=== PATIENT | female | born 1975 | race Caucasian/White ===

== ENCOUNTER → 2019-08-18 | Outpatient (CLI) | payer MEDICARE, MEDICAID, SELFPAY | PROVIDERS: Visit Provider Psychiatry & Neurology Psychiatry | DX: F33.42 Major depressive disorder, recurrent, in full remission (principal); F17.200 Nicotine dependence, unspecified, uncomplicated; F70 Mild intellectual disabilities; F60.3 Borderline personality disorder ==

== ENCOUNTER → 2019-09-04 11:03 | Outpatient (BNVA) | payer MEDICARE, MEDICAID, SELFPAY | PROVIDERS: Visit Provider Otolaryngology | DX: H92.02 Otalgia, left ear (principal); H93.90 Unspecified disorder of ear, unspecified ear; H69.80 Other specified disorders of Eustachian tube, unspecified ear; J32.9 Chronic sinusitis, unspecified; J34.2 Deviated nasal septum; J34.3 Hypertrophy of nasal turbinates; J30.9 Allergic rhinitis, unspecified; F17.210 Nicotine dependence, cigarettes, uncomplicated | CPT/HCPCS: 99213; 99214 ==

== ENCOUNTER 2019-09-16 14:45 | Outpatient (CLI) | payer MEDICARE, MEDICAID, SELFPAY ==
--- NOTE | 2019-09-16 15:00 | CT_ITS ---
WS: [id number] CT TEMPORAL BONES TECHNIQUE: Noncontrast CT of the temporal bones with coronal and sagittal reformatted images. CLINICAL INFORMATION: otalgia COMPARISON: None. DLP: 625.[address] scans at [facility] use at least one of these dose optimization techniques: automat ed exposure control; mA and/or kV adjustment per patient size (includes targeted exams where dose is matched to clinical indication); or iterative reconstruction. FINDINGS: RIGHT: Mucosal thickening mastoid tip. Mastoid air cells are otherwise well aerated. Normal claims auditor y canal. Ossicles are normal in appearance. Middle ear is well aerated. 3.5 mm focus of soft tissue t hickening along the right epitympanum likely inflammatory. No bony erosion. Normal tegmen tympani. Se micircular canals and cochlea are normal in appearance. Prussak's space is normal. Normal inner ear s tructures. Normal vestibular aqueduct. Facial nerve recess is normal. LEFT: Partial opacification left mastoid tip.. Normal external auditory canal. Ossicles are normal in appea katey. Middle ear is well aerated. Normal tegmen tympani. Semicircular canals and cochlea are normal in appearance. Prussak's space is normal. Normal inner ear structures. Normal vestibular aqueduct. Fa cial nerve recess is normal. Left sphenoid sinusitis. CT/CT temporal bone wo con* [id number] IMPRESSION: 1. Ossicles and scutum are normal bilaterally. 2. Small focus of soft tissue thickening along the right epitympanum measuring 3.5 mm likely due to chronic inflammation or granulation tissue. No bony erosi on. Middle ear is otherwise well aerated. 3. Inner ear structures are well aerated bilaterally. 4. Partial opacification of the mastoid tips. 5. Left sphenoid sinusitis.
--- NOTE | 2019-09-16 15:30 | CT_ITS ---
WS: [id number] CT SINUSES TECHNIQUE: Noncontrast CT of the paranasal sinuses with coronal and sagittal reformatted images. CLINICAL INFORMATION: chronic sinusitis COMPARISON: None. DLP: 354.[address] scans at [facility] use at least one of these dose optimization techniques: automat ed exposure control; mA and/or kV adjustment per patient size (includes targeted exams where dose is matched to clinical indication); or iterative reconstruction. FINDINGS: Mild left to right nasal septal deviation measuring 2 mm. Mild mucosal thickening in the maxillary si nuses measuring 3.6 mm in the left and 2.7 mm in the right. Narrowing of the ostiomeatal units bilate rally with mucosal thickening Frontal sinuses are well aerated. Thin septation left frontal sinus. Partial opacification left great er than right frontal ethmoidal recesses with fluid. Mild ethmoid sinusitis worse in the left. Air-fl uid level within the left sphenoid sinus consistent with sinusitis. Right sphenoid locule is well aer ated. Mucosal thickening with mild narrowing along the sphenoid ostia. Partial opacification mastoid tips. CT/CT sinus wo con* [id number] IMPRESSION: 1. Mild left to right nasal septal deviation measuring 2mm 2. Mild mucosal thickening in the maxillary sinuses measuring 2-3 mm worse in the left. 3. Mild ethmoid sinusitis worse on the left. Air-fluid level within the left s phenoid sinus consistent with sinusitis. 4. Partial opacification along the left greater than right frontal ethmoidal r ecesses with fluid. 5. Mucosal thickening with narrowing of the ostiomeatal units bilaterally. 6. Partial opacification mastoid tips bilaterally.
== END 2019-09-16 14:46 | disposition home or self-care (01) ==
LOC: RADWPI 14:49
PROVIDERS: PCP Nurse Practitioner Family; Visit Provider Otolaryngology
DX: J32.8 Other chronic sinusitis (principal); H93.90 Unspecified disorder of ear, unspecified ear; H69.80 Other specified disorders of Eustachian tube, unspecified ear; H92.09 Otalgia, unspecified ear
CPT/HCPCS: 70480; 70486

== ENCOUNTER → 2019-10-01 14:53 | Outpatient (BNVA) | payer MEDICARE, MEDICAID, SELFPAY | PROVIDERS: PCP Nurse Practitioner Family; Visit Provider Otolaryngology | DX: H93.90 Unspecified disorder of ear, unspecified ear (principal); H69.80 Other specified disorders of Eustachian tube, unspecified ear; H92.02 Otalgia, left ear; J30.9 Allergic rhinitis, unspecified; J34.3 Hypertrophy of nasal turbinates; J34.2 Deviated nasal septum; J32.9 Chronic sinusitis, unspecified; F17.210 Nicotine dependence, cigarettes, uncomplicated | CPT/HCPCS: 99213; 99214 ==

== ENCOUNTER → 2019-10-19 12:40 | Outpatient (BNVA) | payer MEDICARE, MEDICAID, SELFPAY | PROVIDERS: PCP Nurse Practitioner Family; Visit Provider Otolaryngology | DX: J32.9 Chronic sinusitis, unspecified (principal); H93.90 Unspecified disorder of ear, unspecified ear; H92.03 Otalgia, bilateral; J30.9 Allergic rhinitis, unspecified; H69.80 Other specified disorders of Eustachian tube, unspecified ear; J34.3 Hypertrophy of nasal turbinates; J34.2 Deviated nasal septum; F17.210 Nicotine dependence, cigarettes, uncomplicated | CPT/HCPCS: 96372; 99214; J3301 ==

== ENCOUNTER → 2019-11-03 10:20 | Outpatient (BNVA) | payer MEDICARE, MEDICAID, SELFPAY | PROVIDERS: PCP Nurse Practitioner Family; Visit Provider Psychiatry & Neurology Psychiatry | DX: F33.40 Major depressive disorder, recurrent, in remission, unspecified (principal); F70 Mild intellectual disabilities; F60.3 Borderline personality disorder; F17.210 Nicotine dependence, cigarettes, uncomplicated; G25.81 Restless legs syndrome | CPT/HCPCS: 99214 ==

== ENCOUNTER → 2020-02-17 07:28 | Outpatient (BNVA) | payer MEDICARE, MEDICAID, SELFPAY | PROVIDERS: PCP Nurse Practitioner Family; Visit Provider Psychiatry & Neurology Psychiatry | DX: F33.40 Major depressive disorder, recurrent, in remission, unspecified (principal); F60.3 Borderline personality disorder; F70 Mild intellectual disabilities; F17.210 Nicotine dependence, cigarettes, uncomplicated; G25.81 Restless legs syndrome; F41.1 Generalized anxiety disorder; F43.12 Post-traumatic stress disorder, chronic | CPT/HCPCS: 99213 ==

== ENCOUNTER → 2020-04-20 09:31 | Outpatient (BNVA) | payer MEDICARE, MEDICAID, SELFPAY | PROVIDERS: PCP Nurse Practitioner Family; Visit Provider Psychiatry & Neurology Psychiatry | DX: F33.40 Major depressive disorder, recurrent, in remission, unspecified (principal); F60.3 Borderline personality disorder; F70 Mild intellectual disabilities; F17.210 Nicotine dependence, cigarettes, uncomplicated; G25.81 Restless legs syndrome | CPT/HCPCS: 99213 ==

== ENCOUNTER → 2020-07-19 07:46 | Outpatient (BNVA) | payer MEDICARE, MEDICAID, SELFPAY | PROVIDERS: PCP Nurse Practitioner Family; Visit Provider Psychiatry & Neurology Psychiatry | DX: F33.40 Major depressive disorder, recurrent, in remission, unspecified (principal); F70 Mild intellectual disabilities; F60.3 Borderline personality disorder; F17.210 Nicotine dependence, cigarettes, uncomplicated; G25.81 Restless legs syndrome | CPT/HCPCS: 99214 ==

== ENCOUNTER → 2020-10-14 09:00 | Outpatient (BNVA) | payer MEDICARE, MEDICAID, SELFPAY | PROVIDERS: PCP Nurse Practitioner Family; Visit Provider Psychiatry & Neurology Psychiatry | DX: F33.40 Major depressive disorder, recurrent, in remission, unspecified (principal); F60.3 Borderline personality disorder; F70 Mild intellectual disabilities; G25.81 Restless legs syndrome; F17.210 Nicotine dependence, cigarettes, uncomplicated | CPT/HCPCS: 99213 ==

== ENCOUNTER 2021-02-16 10:29 | Outpatient (CLI) | payer MEDICARE, MEDICAID, SELFPAY ==
--- NOTE | 2021-02-16 10:37 | US_ITS ---
WS: [id number] ULTRASOUND PELVIS TECHNIQUE: Transabdominal and transvaginal. ULTRASOUND PELVIS TECHNIQUE: Transabdominal. CLINICAL INFORMATION: IRREGULAR MENES/MENORRHEA-PREMENOPAUSAL LMP: February 02, 2021 : No. COMPARISON: None. FINDINGS: Uterus Orientation: Anteverted. Size: 7.6 cm x 4.1 cm x 4.1 cm. Masses: None. Cervix: Normal Endometrium: Normal. Endometrium thickness: 0.6 cm. Adnexa: Heterogeneous right ovarian lesion with peripheral vascularity likely corpus luteum or hemorr hagic cyst measuring 1.7 x 1.3 x 1.4 cm. Right ovary size: 2.7 cm x 1.7 cm x 2.0 cm. Right ovary volume: 4.8 ccm3. Left ovary size: 3.0 cm x 1.4 cm x 2.2 cm. Left ovary volume: 4.7 ccm3 Free fluid: None. Other findings: None. US/US pelvic with transvaginal IMPRESSION: 1. Normal uterus and endometrium. Endometrium measures 6.3 mm. 2. Normal adnexa. 3. Heterogeneous right ovarian lesion with peripheral vascularity likely corpu s luteum or hemorrhagic cyst measuring 1.7 x 1.3 x 1.4 cm. This can be followed up in one to 2 menstrual cycles. 4. No free fluid in the cul-de-sac.
== END 2021-02-16 10:30 | disposition home or self-care (01) ==
LOC: RAD 10:32
PROVIDERS: PCP Nurse Practitioner Family; Visit Provider Nurse Practitioner Family
DX: F33.40 Major depressive disorder, recurrent, in remission, unspecified (principal); F60.3 Borderline personality disorder; F70 Mild intellectual disabilities; F17.210 Nicotine dependence, cigarettes, uncomplicated; G25.81 Restless legs syndrome
CPT/HCPCS: 76830; 76856; 99214

== ENCOUNTER 2021-03-01 11:27 | Outpatient (CLI) | payer MEDICARE, MEDICAID, SELFPAY ==
--- NOTE | 2021-03-01 11:33 | MM_ITS ---
WS: [id number] BILATERAL DIGITAL SCREENING MAMMOGRAPHY WITH CAD CLINICAL INFORMATION: SCREENING HISTORY: Screening mammogram. No current complaints. COMPARISON: [id number] TECHNIQUE: Bilateral CC and MLO views. FINDINGS: The breasts are composed of heterogeneous fibroglandular density tissue, which can limit the detectio n of small underlying mass lesions. No suspicious mass, asymmetry, calcifications, or architectural d istortion. No evidence of malignancy. Stable intramammary lymph node left axillary tail MM/[place] [id number] IMPRESSION: BI-RADS: 2-Benign FOLLOW UP: 1 Year Follow-up Recommend return to annual screening mammography.
== END 2021-03-01 11:28 | disposition home or self-care (01) ==
LOC: RADSHAW 11:32
PROVIDERS: PCP Nurse Practitioner Family; Visit Provider Nurse Practitioner Family
DX: Z12.31 Encounter for screening mammogram for malignant neoplasm of breast (principal)
CPT/HCPCS: 77067

== ENCOUNTER 2021-05-30 14:59 | Outpatient (CLI) | payer MEDICARE, MEDICAID, SELFPAY ==
--- NOTE | 2021-05-30 15:05 | US_ITS ---
WS: [id number] TRANSABDOMINAL PELVIC AND TRANSVAGINAL PELVIC ULTRASOUND HISTORY: R SIDE OVARIAN CYST COMPARISON: 02/16/2021 Uterus: 7.5 cm x 4.7 cm x 3.9 cm. Normal size anteverted uterus. No fibroid or mass. Endometrium: 0.8 cm. Normal trilaminar endometrium. Right ovary: 2.0 cm x 2.3 cm x 1.4 cm. Normal size and echogenicity. No mass. Normal vascularity. No RIGHT ovarian cyst. Left ovary: 2.7 cm x 2.2 cm x 1.8 cm. Normal size and echogenicity. No mass. Normal vascularity. Small amount of physiologic free fluid in the cul-de-sac. US/US pelvic with transvaginal IMPRESSION: Normal pelvic ultrasound. No ovarian cysts.
== END 2021-05-30 15:00 | disposition home or self-care (01) ==
LOC: RAD 15:03
PROVIDERS: PCP Nurse Practitioner Family; Visit Provider Nurse Practitioner Family
DX: N83.291 Other ovarian cyst, right side (principal)
CPT/HCPCS: 76830; 76856

== ENCOUNTER → 2021-06-05 11:12 | Outpatient (BNVA) | payer MEDICARE, MEDICAID, SELFPAY | PROVIDERS: PCP Nurse Practitioner Family; Visit Provider Psychiatry & Neurology Psychiatry | DX: F33.40 Major depressive disorder, recurrent, in remission, unspecified (principal); F60.3 Borderline personality disorder; F70 Mild intellectual disabilities; G25.81 Restless legs syndrome; F17.210 Nicotine dependence, cigarettes, uncomplicated | CPT/HCPCS: 99214 ==

== ENCOUNTER 2021-08-29 12:04 | Emergency (ER) | payer MEDICARE, MEDICAID, SELFPAY ==
--- NOTE | 2021-08-29 12:16 | XRR_ITS ---
PROCEDURE INFORMATION: Exam: XR Chest Exam date and time: 08/29/2021 12:16 PM Age: 46 years old Clinical indication: Patient HX: Coughing x 2 weeks; Additional info: Cough, fevers TECHNIQUE: Imaging protocol: XR of the chest. Views: 1 view. COMPARISON: CR Chest 1 [place] [id number] 02/10/2015 4:28 PM FINDINGS: Lungs: Unremarkable. No consolidation. Pleural spaces: Unremarkable. No pleural effusion. No pneumothorax. Heart/Mediastinum: Unremarkable. No cardiomegaly. Bones/joints: No acute findings. XR/XR chest 1V portable [id number] IMPRESSION: No acute findings.
[2021-08-29 12:36] VITALS: BP 122/87; PULSE 85; RESP 13; TEMP 37.8; O2SAT 97; BMI 25.0
--- NOTE | 2021-08-29 15:57 | W.ED.URI ---
HPI - URI/Sore Throat General: Chief Complaint: General Medical Stated Complaint: cough, congestion, fever off and on Time Seen by Provider: 08/29/21 15:56 Source: patient Mode of arrival: ambulatory Limitations: no limitations History of Present Illness: HPI Narrative: Patient is a 46-year-old female presents to ED today with a complaint of nasal congestion, runny nose, cough, chest congestion, and intermittent low-grade fevers. She states her mother is sick with similar symptoms. Patient tells me she believes she has walking pneumonia . She is not having any chest pain or shortness of breath. MD elicited complaint: fever, cough, rhinorrhea and nasal congestion Onset (ago): day(s) (5) Consistency: constant Severity: mild Description of mucous: clear Able to tolerate fluids by mouth: Yes Exacerbating factors: nothing Relieving factors: nothing Context: sick contacts (mother) Associated symptoms: Reports fever(s) and nasal congestion; Deny abdominal pain, chills, chest pain, diarrhea, headache(s), nausea or vomiting Treatments prior to arrival: none Review of Systems Const: Reports: fever(s); Denies: chills, body aches, fatigue or malaise Eyes: Denies: change in vision or blurry vision ENMT: Reports: nasal discharge and nasal congestion; Denies: throat pain or odynophagia Card: Denies: chest pain, palpitations, irregular heart rhythm, edema, lightheadedness, syncope or pre-syncope Resp: Reports: productive cough and chest congestion; Denies: dyspnea, wheezing or hemoptysis GI: Denies: abdominal pain, nausea, vomiting or diarrhea Musc: Denies: neck pain or back pain Skin/Breast: Denies: rash Neuro: Denies: headache(s) PFS ED PFSH: Medical History (Updated 08/29/21 @ 16:05 by LAVELLE Bang) Borderline personality disorder Cigarette smoker Major depressive disorder, recurrent, in remission Mild intellectual disability Otalgia of both ears Psychiatric care Restless leg syndrome Family History Father CAD (coronary artery disease) Stroke Diabetes Denies family history of Anesthesia complication Bleeding disorder Social History Smoking and tobacco status: current every day smoker cigarettes Packs smoked per day: 0.5 Years cigarettes smoked: 30 Alcohol intake: never Physical Exam Const: COMMON NORMALS: no acute distress, average body habitus, patient oriented x3, no limitations, healthy appearing, alert and well nourished GENERAL APPEARANCE: other (slightly agitated-apparently refused COVID testing from RN) ORIENTATION/CONSCIOUSNESS: Yes awake, Yes oriented to person, Yes oriented to place and Yes oriented to time HENMT: COMMON NORMALS: normocephalic and atraumatic HEAD & SCALP: normocephalic and atraumatic Resp: COMMON NORMALS: normal respiratory effort and clear to auscultation bilaterally AUSCULTATION: clear to auscultation bilaterally Cardio: COMMON NORMALS: regular rate and regular rhythm RATE: regular rate RHYTHM: regular rhythm Extremity: COMMON NORMALS: normal to inspection Neuro: COMMON NORMALS: patient oriented x3 SENSORIUM/ORIENTATION: Yes alert, Yes oriented to person, Yes oriented to place and Yes oriented to time Skin: COMMON NORMALS: no rashes or lesions noted GENERAL SKIN EXAM: no rashes or lesions noted Course Vital Signs: Vital signs: Vital Signs Temperature 100.1 F H 08/29/21 12:36 Pulse Rate 85 08/29/21 12:36 Respiratory Rate 13 08/29/21 12:36 Blood Pressure 122/87 08/29/21 12:36 Pulse Oximetry 97 08/29/21 12:36 MDM - URI/Sore Throat MDM Narrative: Medical decision making narrative: Patient appears in no acute distress. Her vital signs are normal. She did arrive with a low-grade fever however. CXR is normal. Patient adamantly refusing COVID testing stating I know this isn't COVID . She states her mother has similar symptoms. Requesting antibiotics. I told patient at this time symptoms are most likely secondary to viral illness and certainly could be COVID. Strongly recommended she get testing for this however I cannot force her to do so. She tells me that she has a caregiver and will be around others. Again I stressed the importance of knowing whether this is COVID or not so she can quarantine however patient refuses. I think there may be some baseline cognitive disability. Told her viral infections are treated conservatively and there is no need for antibiotics or other prescription medications at this time especially since she appears in no acute distress. Imaging Data^: CXR: Radiologist's impression: [address] [address] XRay Report Signed Patient: Nathalie Majano Unit #: [id number] : 1975 Age/Sex: 46 / F ADM Date: 08/29/21 Loc: ER Room/Bed: Attending Dr: Ordering Provider/Ordering MD: Dionne Wilder Date of Service: 08/29/21 Procedure(s): XR chest 1V portable [id number] Accession Number(s): [id number] Report Number: [id number] PROCEDURE INFORMATION: Exam: XR Chest Exam date and time: 08/29/2021 12:16 PM Age: 46 years old Clinical indication: Patient HX: Coughing x 2 weeks; Additional info: Cough, fevers TECHNIQUE: Imaging protocol: XR of the chest. Views: 1 view. COMPARISON: CR Chest 1 [place] [id number] 02/10/2015 4:28 PM FINDINGS: Lungs: Unremarkable. No consolidation. Pleural spaces: Unremarkable. No pleural effusion. No pneumothorax. Heart/Mediastinum: Unremarkable. No cardiomegaly. Bones/joints: No acute findings. XR/XR chest 1V portable [id number] IMPRESSION: No acute findings. Dictated By: Amaury Elder MD Signed By: Amaury Elder MD Signed Date/Time: 08/29/21 1318 DD/ 1216 Discharge Plan Discharge Patient Disposition: Home Clinical Impression: Viral upper respiratory tract infection with cough Condition: Stable Prescriptions: No Action topiramate [Topamax] 25 mg tablet 25 mg PO DAILY RF: 0 naproxen 250 mg tablet 250 mg PO BID PRNRF: 0 albuterol sulfate 90 mcg/actuation HFA aerosol inhaler 1 inh inhalation QID RF: 0 montelukast 10 mg tablet 10 mg PO DAILY RF: 0 citalopram [Celexa] 40 mg tablet 40 mg PO DAILY Qty: 90 RF: 1 hydroxyzine HCl 50 mg tablet 50 mg PO DAILY PRN (Reason: anxiety) Qty: 30 RF: 2 ropinirole 0.25 mg tablet 0.5 mg PO BID Qty: 120 RF: 2 Discharge Orders: Discharge ED (Routine); Ordered 08/29/21 Ordered By: Dionen Wilder Referrals: Dang Raygoza FNP [Primary Care Provider] - Patient Instructions: Upper Respiratory Infection (ED) Coding Level of Care Code ED Director Of Corporate Real Estate for Suzi Artis
[2021-08-29 16:06] VITALS: BP 129/85; PULSE 87; RESP 18; TEMP 36.6; O2SAT 96
== END 2021-08-29 16:18 | disposition home or self-care (01) ==
PROVIDERS: Emergency Provider Physician Assistant; PCP Nurse Practitioner Family
DX: J06.9 Acute upper respiratory infection, unspecified (principal); F17.210 Nicotine dependence, cigarettes, uncomplicated
CPT/HCPCS: 71045; 96372; 99283; J2930

== ENCOUNTER → 2021-09-06 14:42 | Outpatient (BNVA) | payer MEDICARE, MEDICAID, SELFPAY | PROVIDERS: PCP Nurse Practitioner Family; Visit Provider Psychiatry & Neurology Psychiatry | DX: F33.40 Major depressive disorder, recurrent, in remission, unspecified (principal); F60.3 Borderline personality disorder; F70 Mild intellectual disabilities; G25.81 Restless legs syndrome; F17.210 Nicotine dependence, cigarettes, uncomplicated | CPT/HCPCS: 99214 ==

== ENCOUNTER → 2021-10-20 14:45 | Outpatient (BNVA) | payer MEDICARE, MEDICAID, SELFPAY | PROVIDERS: PCP Nurse Practitioner Family; Visit Provider Psychiatry & Neurology Psychiatry | DX: F33.40 Major depressive disorder, recurrent, in remission, unspecified (principal); F60.3 Borderline personality disorder; F70 Mild intellectual disabilities; G25.81 Restless legs syndrome; F17.210 Nicotine dependence, cigarettes, uncomplicated | CPT/HCPCS: 99213 ==

== ENCOUNTER → 2022-01-10 12:56 | Outpatient (BNVA) | payer MEDICARE, MEDICAID, SELFPAY | PROVIDERS: PCP Nurse Practitioner Family; Visit Provider Psychiatry & Neurology Psychiatry | DX: F33.40 Major depressive disorder, recurrent, in remission, unspecified (principal); F60.3 Borderline personality disorder; F70 Mild intellectual disabilities; G25.81 Restless legs syndrome | CPT/HCPCS: 99213 ==

== ENCOUNTER 2022-01-26 13:39 | Emergency (ER) | payer MEDICARE, MEDICAID, SELFPAY ==
[2022-01-26 14:06] VITALS: BP 146/91; PULSE 100; RESP 15; TEMP 37.2; O2SAT 98; BMI 23.7
--- NOTE | 2022-01-26 14:18 | W.ED.EAR ---
HPI - Ear Problem General: Chief complaint: Ear Stated complaint: Cotton balls in ear can not hear Time Seen by Provider: 01/26/22 14:06 History of Present Illness: Patient is a 47-year-old female comes to the ED with bilateral ear complaint. Ears feel congested and she feels like she has some pressure in mild pain in her ears. She is having trouble hearing due to the symptoms. Denies any drainage of ears. She endorses having seasonal allergies and has been having a lot of nasal and sinus congestion and drainage. Denies any fevers. Associated symptoms: Reports ear or mastoid pain (Bilateral ears); Denies fever(s), headache(s) or neck pain Review of Systems Const: Denies: fever(s), chills or fatigue Eyes: Denies: change in vision or eye discomfort ENMT: Reports: ear or mastoid pain (Bilateral ears) and change in hearing (Bilateral ears); Denies: throat pain, odynophagia, nasal discharge or nasal congestion Card: Denies: chest pain, palpitations, edema, swelling of feet/ankles, dyspnea on exertion or orthopnea Resp: Denies: dyspnea, productive cough or non-productive cough GI: Denies: abdominal pain, nausea, vomiting, diarrhea, constipation or hematochezia : Denies: flank pain, dysuria or hematuria Musc: Denies: neck pain, back pain or extremity swelling Skin/Breast: Denies: rash or new lesions Neuro: Denies: headache(s), numbness in extremities or weakness in extremities PFSH ED PFSH: Medical History Borderline personality disorder Cigarette smoker Major depressive disorder, recurrent, in remission Mild intellectual disability Otalgia of both ears Psychiatric care Restless leg syndrome Family History Father CAD (coronary artery disease) Stroke Diabetes Denies family history of Anesthesia complication Bleeding disorder Social History Smoking and tobacco status: current every day smoker cigarettes Packs smoked per day: 0.5 Years cigarettes smoked: 30 Alcohol intake: never Physical Exam Const: COMMON NORMALS: patient oriented x3 and alert GENERAL APPEARANCE: cooperative HENMT: COMMON NORMALS: normocephalic, external ears normal and EAC's normal HEAD & SCALP: normocephalic EXTERNAL EAR: Yes external ears normal EXTERNAL AUDITORY CANAL: EAC's normal TYMPANIC MEMBRANE: TM abnormal TM laterality: bilateral bulging, erythematous and with fluid behind the TM; not perforated MOUTH: Normal oral and palatal mucosa present THROAT: posterior oropharynx normal and uvula midline Eye: COMMON NORMALS: Equal, round and reactive pupils present PUPIL: Yes Equal, round and reactive pupils present Neck/C-Spine: COMMON NORMALS: supple GENERAL: Yes normal visual inspection Resp: COMMON NORMALS: normal respiratory effort, No retractions, No use of accessory muscles and clear to auscultation bilaterally AUSCULTATION: clear to auscultation bilaterally Cardio: COMMON NORMALS: regular rate, regular rhythm, S1 normal heart sound present, S2 normal heart sound present, No gallops present (Cardio), No clicks present (Cardio), No murmurs present (Cardio) and Peripheral pulses 2+ throughout RATE: regular rate RHYTHM: regular rhythm HEART SOUNDS: S1 normal heart sound present and S2 normal heart sound present PERIPHERAL PULSES: Peripheral pulses 2+ throughout GI: COMMON NORMALS: Normal to inspection, nondistended, normoactive bowel sounds present, Soft to palpation, non-tender and no masses PALPATION: Yes Soft to palpation : COMMON NORMALS: Yes no CVA tenderness BLADDER/KIDNEY EXAM: Yes no CVA tenderness Back/Pelvis: COMMON NORMALS: no CVA tenderness Extremity: COMMON NORMALS: normal to inspection Neuro: COMMON NORMALS: patient oriented x3 and moves all extremities SENSORIUM/ORIENTATION: Yes alert Skin: GENERAL SKIN EXAM: dry skin Course Vital Signs: Vital signs: Vital Signs Temperature 98.9 F 01/26/22 14:06 Pulse Rate 100 01/26/22 14:06 Respiratory Rate 15 01/26/22 14:06 Blood Pressure 146/91 01/26/22 14:06 Pulse Oximetry 98 01/26/22 14:06 MDM - Ear Medical Decision Making Patient is a 47-year-old female comes the ED with bilateral ear pain and congestion. Exam shows bilateral otitis media. Vitals are stable and patient appears nontoxic and in no acute distress. She was stable for discharge home and sent home with a prescription for amoxicillin. Told to follow-up with her PCP in the next 7 to 10 days reevaluation. Return ED precautions given. Patient understood and agreed with plan. Discharge Plan Discharge Patient Disposition: Home Clinical Impression: Bilateral otitis media Qualifiers: Otitis media type: serous Chronicity: unspecified Qualified Code(s): H65.93 - Unspecified nonsuppurative otitis media, bilateral Condition: Stable Prescriptions: New amoxicillin 500 mg capsule 500 mg PO BID 10 Days Qty: 20 0RF No Action topiramate [Topamax] 25 mg tablet 25 mg PO DAILY 0RF benzonatate 100 mg capsule 100 mg PO BID PRN0RF naproxen 250 mg tablet 250 mg PO BID PRN0RF albuterol sulfate 90 mcg/actuation HFA aerosol inhaler 1 inh inhalation QID 0RF montelukast 10 mg tablet 10 mg PO DAILY 0RF citalopram [Celexa] 40 mg tablet 40 mg PO DAILY Qty: 90 1RF hydroxyzine HCl 50 mg tablet 50 mg PO DAILY PRN (Reason: anxiety) Qty: 30 2RF ropinirole 0.25 mg tablet 0.5 mg PO BID Qty: 120 2RF Discharge Orders: Discharge ED (Routine); Ordered 01/26/22 Ordered By: Umair Jasso Referrals: Dang Raygoza FNP [Primary Care Provider] - Discharge Diet: Regular Discharge Activity: Resume usual activity Activity Restrictions/Additional Instructions: Follow-up with medical provider as directed in the next 7 to 10 days reevaluation. Take medications as prescribed. Continue using [id number] nasal decongestants to help with symptoms. Return to the ER or your medical provider if condition worsens. Please read and understand discharge instructions. Thank you for choosing [facility] for your healthcare needs today. Please realize this is an emergency room and that we are providing you with a medical screening exam and this may not be complete and all inclusive of all the testing and or work up that you may need to determine your ailment or severity of your illness. It is very important that you follow up as instructed or that you return to the Emergency Department should you have concerns or if your condition changes or worsens in any way. Coding Level of Care Code ED Quality Analyst/Technical Writer for [employer]zi Artis
[2022-01-26] MEDS: dexamethasone 10 mg/mL INJ IM (14:50)
== END 2022-01-26 14:55 | disposition home or self-care (01) ==
PROVIDERS: Emergency Provider Physician Assistant; PCP Nurse Practitioner Family
DX: H65.93 Unspecified nonsuppurative otitis media, bilateral (principal); F17.210 Nicotine dependence, cigarettes, uncomplicated
CPT/HCPCS: 96372; 99283; J1100

== ENCOUNTER → 2022-01-30 10:54 | Outpatient (BNVA) | payer MEDICARE, MEDICAID, SELFPAY | PROVIDERS: PCP Nurse Practitioner Family; Visit Provider Otolaryngology | DX: J30.9 Allergic rhinitis, unspecified (principal); H69.83 Other specified disorders of Eustachian tube, bilateral; F17.210 Nicotine dependence, cigarettes, uncomplicated | CPT/HCPCS: 99213 ==

== ENCOUNTER → 2022-05-04 11:30 | Outpatient (BNVA) | payer MEDICARE, SELFPAY | PROVIDERS: PCP Nurse Practitioner Family; Visit Provider Otolaryngology | DX: J30.9 Allergic rhinitis, unspecified (principal) | CPT/HCPCS: 96372 ==

== ENCOUNTER → 2022-08-03 11:23 | Outpatient (BNVA) | payer MEDICARE, MEDICAID, SELFPAY | PROVIDERS: PCP Nurse Practitioner Family; Visit Provider Otolaryngology | DX: J30.9 Allergic rhinitis, unspecified (principal) | CPT/HCPCS: 96372 ==

== ENCOUNTER 2022-10-04 14:47 | Outpatient (CLI) | payer MEDICARE, MEDICAID, SELFPAY ==
--- NOTE | 2022-10-04 | XR_ITS ---
WS: [id number] Left shoulder, 3 views, 10/04/2022 Clinical Data: PAIN IN LEFT SHOULDER Comparison: None. Findings: No fractures or dislocations are seen. The AC joint is normal. The adjacent left clavicle, left scapu la and ribs are normal. The soft tissues are unremarkable. XR/XR shoulder LT min 2V* [id number] Impression: Negative left shoulder.
== END 2022-10-04 14:48 | disposition home or self-care (01) ==
PROVIDERS: PCP Nurse Practitioner Family; Visit Provider Nurse Practitioner Family
DX: M25.512 Pain in left shoulder (principal)
CPT/HCPCS: 73030

== ENCOUNTER → 2022-11-02 10:56 | Outpatient (BNVA) | payer MEDICARE, MEDICAID, SELFPAY | PROVIDERS: PCP Family Medicine; Visit Provider Otolaryngology | DX: J30.9 Allergic rhinitis, unspecified (principal) | CPT/HCPCS: 96372 ==

== ENCOUNTER 2022-11-26 12:36 | Outpatient (CLI) | payer MEDICARE, MEDICAID, SELFPAY ==
--- NOTE | 2022-11-26 | MR_ITS ---
WS: [id number] EXAMINATION: MR shoulder LT wo con* [id number] ORDER DATE: 11/26/2022 12:30 PM COMPARISON: None. HISTORY: LEFT SHOULDER PAIN CONTRAST: None. TECHNIQUE: Axial T2 STAR, coronal proton density fat sat, sagittal T2 fat sat, sagittal proton densit y fat sat, axial proton density fat sat, coronal T2 fat sat, and coronal T1 performed. After contrast , axial T1 fat sat, coronal T1 fat sat, and sagittal T1 fat sat were performed. FINDINGS: Mild degenerative arthritis AC joint with small amount of fluid. Mild downsloping acromion. Slight im pingement on the distal supraspinatus. Mild chronic thinning of the distal supraspinatus appears inta ct. Normal infraspinatus. Normal subscapularis. No acute appearing rotator cuff tears. Normal biceps tendon in the bicipital groove. Glenoid labrum appears grossly normal. Intra-articular biceps tendon appears intact. Normal biceps labral anchor. MR/MR shoulder LT wo con* [id number] IMPRESSION: 1. Mild degenerative arthritis AC joint with mild edema and fluid. 2. Mild downsloping of the acromion with impingement on the distal supraspinat us. Chronic thinning of the supraspinatus appears intact. 3. Rotator cuff is otherwise intact. 4. Biceps tendon in the bicipital groove. 5. No other acute findings.
== END 2022-11-26 12:37 | disposition home or self-care (01) ==
PROVIDERS: PCP Family Medicine; Visit Provider Nurse Practitioner Family
DX: M19.012 Primary osteoarthritis, left shoulder (principal); M25.812 Other specified joint disorders, left shoulder; R60.0 Localized edema
CPT/HCPCS: 73221

== ENCOUNTER → 2022-12-24 14:38 | Outpatient (BNVA) | payer MEDICARE, MEDICAID, OTHER, SELFPAY | PROVIDERS: PCP Family Medicine; Referring Provider Nurse Practitioner Family; Visit Provider Specialist | DX: M75.02 Adhesive capsulitis of left shoulder (principal) | CPT/HCPCS: 73030; 99204 ==

== ENCOUNTER 2022-12-31 06:00 | Outpatient (RCR) | payer MEDICARE, MEDICAID, OTHER, SELFPAY | END 2023-01-30 23:59 | disposition home or self-care (01) | LOC: SPT 06:00 | PROVIDERS: PCP Family Medicine; Visit Provider Specialist | DX: M75.02 Adhesive capsulitis of left shoulder (principal); M25.512 Pain in left shoulder | CPT/HCPCS: 97161 ==

== ENCOUNTER 2023-01-31 06:00 | Outpatient (RCR) | payer MEDICARE, MEDICAID, SELFPAY | END 2023-03-01 23:59 | disposition home or self-care (01) | LOC: SPT 06:00 | PROVIDERS: PCP Family Medicine; Visit Provider Specialist | DX: M75.02 Adhesive capsulitis of left shoulder (principal); M25.512 Pain in left shoulder | CPT/HCPCS: 97110; 97530 ==

== ENCOUNTER 2023-03-02 06:00 | Outpatient (RCR) | payer MEDICARE, MEDICAID, SELFPAY | END 2023-03-14 23:59 | disposition home or self-care (01) | LOC: SPT 06:00 | PROVIDERS: PCP Family Medicine; Visit Provider Specialist | DX: M25.512 Pain in left shoulder (principal); M75.02 Adhesive capsulitis of left shoulder | CPT/HCPCS: 97110; 97530 ==

== ENCOUNTER → 2023-04-15 13:05 | Outpatient (BNVA) | payer MEDICARE, MEDICAID, SELFPAY | PROVIDERS: PCP Family Medicine; Visit Provider Specialist | DX: M75.02 Adhesive capsulitis of left shoulder (principal) | CPT/HCPCS: 73030; 99213 ==

== ENCOUNTER 2023-05-17 16:27 | Outpatient (CLI) | payer MEDICARE, SELFPAY ==
--- NOTE | 2023-05-17 | XRR_ITS ---
PROCEDURE INFORMATION: Exam: XR Abdomen Exam date and time: 05/17/2023 4:44 PM Age: 48 years old Clinical indication: Constipation TECHNIQUE: Imaging protocol: Radiologic exam of the abdomen. Views: Frontal supine view of the abdomen. 1 View. COMPARISON: CR XR chest 1V portable [id number] 08/29/2021 12:25 PM FINDINGS: Gastrointestinal tract: Moderate constipation without bowel dilation to indicate obstruction. Bones/joints: Unremarkable. XR/XR KUB [id number] IMPRESSION: Moderate constipation without bowel dilation to indicate obstruction.
== END 2023-05-17 16:28 | disposition home or self-care (01) ==
PROVIDERS: PCP Family Medicine; Visit Provider Nurse Practitioner Family
DX: K59.00 Constipation, unspecified (principal)
CPT/HCPCS: 74018

== ENCOUNTER → 2024-03-25 14:55 | Outpatient (CLI) | payer MEDICARE, MEDICAID, SELFPAY ==
--- NOTE | 2024-03-25 15:06 | MM_ITS ---
WS: [id number] BILATERAL 3D TOMOSYNTHESIS DIGITAL SCREENING MAMMOGRAPHY WITH CAD CLINICAL INFORMATION: SCREENING HISTORY: Screening mammogram. No current complaints. COMPARISON: 2022 TECHNIQUE: Bilateral CC and MLO views. FINDINGS: The breasts are composed of heterogeneous fibroglandular density tissue, which can limit the detectio n of small underlying mass lesions. No suspicious mass, asymmetry, calcifications, or architectural d istortion. No evidence of malignancy. Prominent lymph node along the LEFT axillary tail was present p reviously. MM/[place] [id number] IMPRESSION: BI-RADS: 2-Benign FOLLOW UP: 1 Year Follow-up Recommend return to annual screening mammography.
== END | disposition home or self-care (01) ==
LOC: RAD 14:55
PROVIDERS: PCP Family Medicine; Visit Provider Nurse Practitioner Family
DX: Z12.31 Encounter for screening mammogram for malignant neoplasm of breast (principal); R92.333 Mammographic heterogeneous density, bilateral breasts; R92.323 Mammographic fibroglandular density, bilateral breasts
CPT/HCPCS: 77063; 77067

== ENCOUNTER 2024-06-24 14:49 | Outpatient (CLI) | payer MEDICARE, SELFPAY ==
--- NOTE | 2024-06-24 14:55 | XR_ITS ---
WS: [id number] Exam: [place] [id number] Date/Time of Exam: 06/24/2024 3:02 PM Reason For Exam: pain in right upper arm No fracture or dislocation noted. Normal soft tissues. XR/[place] [id number] IMPRESSION: 1. Negative RIGHT humerus.
== END 2024-06-24 14:50 | disposition home or self-care (01) ==
LOC: RAD 14:52
PROVIDERS: PCP Family Medicine; Visit Provider Nurse Practitioner Family
DX: M79.621 Pain in right upper arm (principal)
CPT/HCPCS: 73060

== ENCOUNTER 2024-07-03 15:15 | Outpatient (CLI) | payer MEDICARE, SELFPAY ==
--- NOTE | 2024-07-03 15:20 | XRR_ITS ---
PROCEDURE INFORMATION: Exam: XR Left Knee Exam date and time: 07/03/2024 3:56 PM Age: 49 years old Clinical indication: Left; Patient HX: Lt lateral knee pain x 2 weeks; No known injury; Additional info: L knee pain TECHNIQUE: Imaging protocol: Radiologic exam of the left knee. Views: 1 or 2 views. COMPARISON: No relevant prior studies available. FINDINGS: Bones/joints: Normal. Soft tissues: Normal. XR/XR knee LT 1-2V [id number] IMPRESSION: No acute fracture or dislocation. No knee joint effusion.
== END 2024-07-03 15:16 | disposition home or self-care (01) ==
PROVIDERS: PCP Family Medicine; Visit Provider Nurse Practitioner Family
DX: M25.562 Pain in left knee (principal)
CPT/HCPCS: 73560